=== PATIENT | male | born 1935 | race Caucasian/White ===

== ENCOUNTER 2018-02-21 08:30 | Inpatient (IN) ==
[2018-02-15 12:39] LABS: Appearance,Urine CLEAR; Bacteria,Urine 0 /hpf (0); Bilirubin,Urine NEG (NEG); Color,Urine YELLOW; Glucose,Urine (UA) NEGATIVE (NEG); Leukocyte Esterase,Urine 25 /uL (NEG); Mucus,Urine FEW /hpf (0); Protein,Urine NEG (NEG); Specific Gravity,Urine 1.016 (1.000-1.035); Urine Amorphous Crystals FEW /hpf (0); Urine Blood NEG mg/dL (<0.03); Urine Hyaline Cast 3 /lpf (0-2); Urine RBC < 1 /hpf (0-1); Urine Squamous Epithelial Cell 1 /hpf (0-4); Urine WBC < 1 /hpf (0-4); Urobilinogen,Urine NEG (NEG)
[2018-02-15 13:01] LABS: Blood Urea Nitrogen 13 mg/dl (8-23)
[2018-02-15 13:13] LABS: Basophils # (Auto) 0 K/mcL (0.0-0.3); Basophils % (Auto) 0.5 % (0.0-2.0); Eosinophils # (Auto) 0.2 K/mcL (0.0-0.7); Eosinophils % (Auto) 3.7 % (0.0-7.0); Lymphocytes # (Auto) 1.5 K/mcL (1.5-4.8); Lymphocytes % (Auto) 23.2 % (15.5-49.0); Mean Cell Volume 92.7 fL (80.0-100.0); Mean Corpuscular HGB Conc 33.2 g/dL (31.0-36.0); Mean Corpuscular Hemoglobin 30.8 pg (26.0-34.0); Monocytes # (Auto) 0.5 K/mcL (0.1-0.9); Monocytes % (Auto) 7.6 % (1.0-12.0); Platelet Count 176 K/mcL (140-440); RBC 4.78 M/mcL (4.50-5.90); Red Cell Distribution Width 14.2 % (11.5-14.5)
[~2018-02-21 08:30] MED LIST: 0.9 % SODIUM CHLORIDE 9 ML, KETOROLAC 30 MG, ROPIVACAINE HCL/PF 49.5 ML, EPINEPHrine 0.... IJ SCH; ACETAMINOPHEN 500 MG TABLET PO SCH; CELECOXIB 200 MG CAPSULE PO SCH; PREGABALIN 75 MG CAPSULE PO SCH; ceFAZolin 1 GM VIAL IV SCH; oxyCODONE 10 MG TAB.ER.12H PO SCH
[2018-02-21] MEDS ORDERED: PHENYLEPHRINE 10 MG/ML VIAL IV ONE (11:15)
[2018-02-21] MEDS ORDERED: KETAMINE 100 MG/ML ML IV ONE (11:15)
[2018-02-21] MEDS ORDERED: ONDANSETRON 4 MG/2 ML VIAL IV ONE (11:15)
[2018-02-21] MEDS ORDERED: ROPIVACAINE HCL/PF 30 ML VIAL IJ ONE (11:15)
[2018-02-21] MEDS ORDERED: GLYCOPYRROLATE 0.2 MG/ML VIAL IV ONE (11:15)
[2018-02-21] MEDS ORDERED: LIDOCAINE HCL/PF 100 MG/5 ML SYRINGE IV ONE (11:15)
[2018-02-21] MEDS ORDERED: TRANEXAMIC ACID 1,000 MG/10 ML VIAL IV ONE ×2 (11:15→13:02)
[2018-02-21] MEDS ORDERED: MIDAZOLAM 2 MG/2 ML VIAL IV ONE (11:15)
[2018-02-21] MEDS ORDERED: PROPOFOL 200 MG/20 ML VIAL IV ONE (11:15)
[2018-02-21] MEDS ORDERED: GENTAMICIN SULFATE 800 MG/20 ML VIAL IR ONE (11:35)
[2018-02-21] MEDS ORDERED: TEMAZEPAM 15 MG CAPSULE PO PRN (13:02)
[2018-02-21] MEDS ORDERED: MAGNESIUM HYDROXIDE 30 ML ORAL.SUSP PO PRN (13:02)
[2018-02-21] MEDS ORDERED: BISACODYL 10 MG SUPP.RECT PR PRN (13:02)
[2018-02-21] MEDS ORDERED: FLEETS ADULT ENEMA PR PRN (13:02)
[2018-02-21] MEDS ORDERED: ONDANSETRON 4 MG/2 ML VIAL IV PRN ×2 (13:02→13:04)
[2018-02-21] MEDS ORDERED: ACETAMINOPHEN 325 MG TABLET PO PRN (13:02)
[2018-02-21] MEDS ORDERED: POLYETHYLENE GLYCOL 3350 17 GM PACKET PO PRN (13:02)
[2018-02-21] MEDS ORDERED: BENZOCAINE/MENTHOL 1 LOZENGE PO PRN (13:02)
--- NOTE | 2018-02-21 13:02 | Brief Operative Note ---
Date of procedure: 02/21/18 Pre-op diagnosis: left total loose and infected Post-op diagnosis: same Procedure: left tka revision first stage Grafts/Implants: Yes Anesthesia: PARKERA Surgeon: Tc Espinoza Radiologist Chief Of Breast Imaging: Kyree Ortiz Estimated blood loss (cc): 20 Tourniquet Time (Minutes): 55 Specimens Removed/Pathology: none sent Condition: stable Disposition: PACU
[2018-02-21] MEDS ORDERED: METHOCARBAMOL 1,000 MG/10 ML VIAL IV PRN (13:04)
[2018-02-21] MEDS ORDERED: MEPERIDINE 25 MG/ML SYRINGE IV PRN (13:04)
[2018-02-21] MEDS ORDERED: PROMETHAZINE 25 MG/ML VIAL IV PRN (13:04)
[2018-02-21] MEDS ORDERED: fentaNYL 100 MCG/2 ML VIAL IV PRN (13:04)
[2018-02-21] MEDS ORDERED: ePHEDrine 50 MG/ML AMPUL IV PRN (13:04)
[2018-02-21] MEDS ORDERED: IPRATROPIUM/ALBUTEROL 3 ML AMPUL.NEB NEB PRN (13:04)
[2018-02-21] MEDS ORDERED: POTASSIUM CHLORIDE 20 MEQ TABLET PO PRN (13:06)
[2018-02-21] MEDS ORDERED: OMEPRAZOLE 20 MG CAPSULE PO PRN (13:06)
[2018-02-21] MEDS ORDERED: METHOCARBAMOL 750 MG TABLET PO PRN (13:06)
[2018-02-21] MEDS ORDERED: LACTATED RINGERS 1,000 ML IV SCH (13:15)
--- NOTE | 2018-02-21 13:56 | XRay Report ---
HISTORY: Postop left knee arthroplasty FINDINGS: There is a well positioned total knee prosthesis. No fractures present. A joint spurs present along the top of the patella. In the region of the suprapatellar bursa and behind the giant spur there is a cluster of three calcifications with sclerotic borders. The largest measures 5 x 10 mm. These are more likely extracapsular rather than within the suprapatellar bursa. IMPRESSION: Well-positioned knee prosthesis Interpreted and Authenticated by: Zan Sykes 02/21/18
[2018-02-21] MEDS: 0.9 % SODIUM CHLORIDE 10 ML SYRINGE IV SCH ×2 (14:41→21:00)
--- NOTE | 2018-02-21 14:48 | Operative Note ---
DATE OF OPERATION: 02/21/2018 PREOPERATIVE DIAGNOSIS: Left failed total knee. 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 Cultures were sent. PROCEDURE: Left first-stage revision of a total knee arthroplasty. SURGEON: Tc Espinoza M.D. UNHAIRING INSPECTOR: Kyree Ortiz PA-C. ANESTHESIA: General LMA anesthesia by Dr. Linares. COMPLICATIONS: None. TOTAL TOURNIQUET TIME: 55 minutes. BLOOD LOSS: 20 mL. DESCRIPTION OF PROCEDURE: The patient was brought to the operating room and put to sleep with general LMA anesthesia. Once asleep, the patient had the left leg sterilely prepped and draped in the usual sterile fashion. Once we had done this and we confirmed the operative site, we then made a midline medial incision, midvastus approach performed through his prior scar. __ of the patella which was very large and bone had formed around the superior portion of the patella and laterally. The patient also had severe synovitis throughout the knee and some purulent fluid. At this point, we sent three samples to the pathologist with readings of the medial compartment synovitis of 12, posterior lateral was 7, and anterior was 10 white blood cells per high-powered field. With these findings, we chose to proceed with a first-stage revision. We removed the femoral component and the tibial component and poly. I removed the lateral facet of the patella. Once these components were removed using flexible osteotomes, we thoroughly irrigated and performed a complete synovectomy. Chlorhexidine was used as a wash for the knee and then copious amounts of pulse lavage. We then trialed the size 6 tibial baseplate, size 6 femur with a medial wedge of 10 mm. Once this was done, we then cemented into place a size 6 tibial base plate, 6 femur with an 11 mm poly. This seemed to fit very nicely. The patient tolerated this well without complication. When the cement was dry, we took the knee to 45 degrees, closed the midvastus approach with #1 Stratafix x2 stitches. We performed a lateral release of the facet or bony material in the lateral portion of the patella. We also improved the rotation of the tibial baseplate and some cysts in the bone were noted. These were curetted and filled with antibiotic-impregnated cement. Once this was done, we then closed the capsule and closed the skin with Stratafix and then adhesive closure. The patient tolerated this well. There was no complication. RBCata:khalif Job ID: [id number] Doc ID: [id number] Tc Espinoza MD
[2018-02-21] MEDS: 0.45 % SODIUM CHLORIDE 1,000 ML IV SCH ×2 (15:08→23:22)
[2018-02-21] MEDS: WARFARIN 5 MG TABLET PO SCH (15:08)
[2018-02-21] MEDS: ceFAZolin 1 GM VIAL IV SCH (17:46)
[2018-02-21] MEDS: KETOROLAC 15 MG/ML VIAL IV SCH ×2 (17:53→23:15)
[2018-02-21] MEDS: metFORMIN 500 MG TABLET PO SCH (17:53)
[2018-02-21] MEDS: GLIMEPIRIDE 2 MG TABLET PO SCH (18:09)
[2018-02-21] MEDS ORDERED: DEXTROSE 31 GM ORAL.SUSP PO PRN (18:43)
[2018-02-21] MEDS ORDERED: DEXTROSE 50% 50 ML VIAL IV PRN (18:43)
[2018-02-21] MEDS: HYDROcodone/APAP 10/325MG TABLET PO PRN (19:40)
[2018-02-21] MEDS: DOCUSATE SODIUM 100 MG CAPSULE PO SCH (20:55)
[2018-02-21] MEDS: DIAZEPAM 5 MG TABLET PO SCH (20:55)
[2018-02-21] MEDS: AMITRIPTYLINE 10 MG TABLET PO SCH (20:55)
[2018-02-21] MEDS: SENNOSIDES 1 TABLET PO SCH (20:55)
[2018-02-21] MEDS ORDERED: ASPIRIN 325 MG ENTERIC COATED TABLET PO SCH (21:00)
[2018-02-21] MEDS: INSULIN LISPRO 1 UNIT/0.01 ML UNIT SQ SCH (21:00)
[2018-02-22] MEDS: ceFAZolin 1 GM VIAL IV SCH (01:15)
[2018-02-22] MEDS: HYDROcodone/APAP 10/325MG TABLET PO PRN ×2 (02:17→08:36)
[2018-02-22] MEDS: 0.45 % SODIUM CHLORIDE 1,000 ML IV SCH ×3 (03:07→18:37)
[2018-02-22] MEDS: KETOROLAC 15 MG/ML VIAL IV SCH ×4 (05:31→23:44)
[2018-02-22] MEDS: 0.9 % SODIUM CHLORIDE 10 ML SYRINGE IV SCH ×3 (05:31→20:52)
--- NOTE | 2018-02-22 07:28 | Orthopedic Progress Note ---
Subjective Patient information: Note initiated : 02/22/18 at 7:27 am Service Date, if different from initiated Date: [] Patient: Huey Boland 82 y/o M admitted on 02/21/18 for Revision Total Knee - Left. Chief Complaint: [Pt is stable this morning on post operative day 2 without any significant concerns or complaints. Patients vital signs have remained stable. Patients dressing is dry and is grossly instact from a neurovascular and motor standpoint. Patients 10 point ROS is otherwise negative. ] Objective Vital signs: Vital Signs Temp Pulse Resp BP Pulse Ox 02/22/18 04:35 96 02/22/18 04:00 98.3 F 67 16 112/67 96 02/21/18 23:56 97.4 F 64 16 103/64 93 02/21/18 20:00 96.6 F L 91 H 18 105/73 93 02/21/18 17:01 114/68 100 02/21/18 16:02 111/69 98 02/21/18 15:32 112/71 93 02/21/18 15:01 115/74 98 02/21/18 14:46 115/74 95 02/21/18 14:30 109/65 97 02/21/18 14:16 96.4 F L 109/70 97 02/21/18 14:01 96.9 F L 78 14 111/79 97 02/21/18 13:46 97.0 F 88 16 103/71 94 02/21/18 13:31 97.0 F 90 17 93/68 97 02/21/18 13:26 66 16 94/57 97 02/21/18 13:21 57 L 13 94/59 96 02/21/18 13:16 97.1 F 51 L 14 99/59 94 02/21/18 10:17 97.6 F 18 133/89 95 Intake and Output 02/21/18 02/22/18 02/22/18 21:59 05:59 13:59 Intake Total 480 / 480 2000 / 2000 Output Total 150 / 150 400 / 400 Balance 330 / 330 1600 / 1600 Intake: IV 1000 / 1000 Sodium Chloride 0.45% 1,000 ml 1000 / 1000 @ 100 mls/hr IV .Q10H [facility] Rx#: [id number] Oral 480 / 480 1000 / 1000 Output: Urine Catheter Amount 400 / 400 Estimated Blood Loss 150 / 150 Other: Meal Dinner Percent of Meal Consumed 75% Urine Appearance Clear Straight Clear Urine Color Dark Yellow Straight Bright Yellow Urine Odor Normal Weight 290 lb 8 oz Intake & Output: Intake & Output 02/21/18 02/22/18 02/22/18 21:59 05:59 13:59 Intake Total 480 / 480 1999 / 1999 Output Total 150 / 150 400 / 400 Balance 330 / 330 1600 / 1600 Weight 290 lb 8 oz Intake: IV 1000 / 1000 Sodium Chloride 0.45% 1,000 ml 1000 / 1000 @ 100 mls/hr IV .Q10H [facility] Rx#: [id number] Oral 480 / 480 1000 / 1000 Output: Urine Catheter Amount 400 / 400 Estimated Blood Loss 150 / 150 Other: Meal Dinner Percent of Meal Consumed 75% Urine Appearance Clear Straight Clear Urine Color Dark Yellow Straight Bright Yellow Urine Odor Normal Incision: Yes healing Incision clean and dry: Yes Dressing: Yes clean Weight bearing status: full Neurological exam IM: Yes motor sensory intact, Yes neurovascular intact Extremities exam IM: Yes Foot pink and warm, Yes neurovascular intact - Labs CBC & BMP: 02/22/18 04:28 02/15/18 10:53 Labs: Orthopedic Labs 02/15/18 10:52 PT 16.9 H INR 1.4 H APTT 37 02/22/18 02/15/18 04:28 10:52 Hgb 14.7 Hct 34.9 L 44.3 Assessment and Plan (1) 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 The patient has had all necessary DME prescribed. The patient has remained relatively stable during their hospital course. 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
[2018-02-22] MEDS: INSULIN LISPRO 1 UNIT/0.01 ML UNIT SQ SCH ×4 (07:29→20:51)
--- NOTE | 2018-02-22 07:31 | Discharge Summary ---
Ortho Discharge - TKA - Patient Instructions Diet: Regular Diet Activity: activity as tolerated, weight bearing as tolerated Total Knee Protocol: For Total Knee: Start ROM [place] with stationary bike or rocking chair. Work on gaining full extension of knee. Posterior dislocation precautions provided. Hip abductor strengthening and gait training instructions provided. Apply Cryocuff as instructed. 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
[2018-02-22] MEDS: LISINOPRIL 10 MG TABLET PO SCH (08:36)
[2018-02-22] MEDS: GLIMEPIRIDE 2 MG TABLET PO SCH ×2 (08:36→17:21)
[2018-02-22] MEDS: metFORMIN 500 MG TABLET PO SCH ×2 (08:36→17:21)
[2018-02-22] MEDS: DOCUSATE SODIUM 100 MG CAPSULE PO SCH ×2 (08:36→20:51)
[2018-02-22] MEDS: HYDROmorphone 2 MG/ML VIAL IV PRN ×2 (08:49→10:40)
[2018-02-22] MEDS: oxyCODONE/APAP 5/325MG TABLET PO PRN ×2 (12:32→19:32)
[2018-02-22] MEDS: CEPHALEXIN 250 MG CAPSULE PO SCH ×3 (12:33→20:52)
[2018-02-22] MEDS ORDERED: WARFARIN 5 MG TABLET PO ONE ×2 (15:00)
[2018-02-22] MEDS: WARFARIN 5 MG TABLET PO SCH (15:58)
[2018-02-22] MEDS: AMITRIPTYLINE 10 MG TABLET PO SCH (20:51)
[2018-02-22] MEDS: DIAZEPAM 5 MG TABLET PO SCH (20:52)
[2018-02-22] MEDS: FUROSEMIDE 20 MG TABLET PO PRN (20:52)
[2018-02-22] MEDS: SENNOSIDES 1 TABLET PO SCH (20:52)
[2018-02-23] MEDS: oxyCODONE/APAP 5/325MG TABLET PO PRN ×5 (02:34→20:54)
[2018-02-23] MEDS: 0.45 % SODIUM CHLORIDE 1,000 ML IV SCH ×2 (04:37→15:34)
[2018-02-23] MEDS: 0.9 % SODIUM CHLORIDE 10 ML SYRINGE IV SCH ×3 (06:01→20:41)
[2018-02-23] MEDS: KETOROLAC 15 MG/ML VIAL IV SCH ×2 (06:01→11:39)
[2018-02-23] MEDS: INSULIN LISPRO 1 UNIT/0.01 ML UNIT SQ SCH ×4 (06:59→20:41)
[2018-02-23] MEDS: GLIMEPIRIDE 2 MG TABLET PO SCH ×2 (07:07→17:06)
[2018-02-23] MEDS: metFORMIN 500 MG TABLET PO SCH ×2 (07:57→17:06)
[2018-02-23] MEDS: LISINOPRIL 10 MG TABLET PO SCH (07:57)
[2018-02-23] MEDS: DOCUSATE SODIUM 100 MG CAPSULE PO SCH ×2 (07:57→20:52)
[2018-02-23] MEDS: CEPHALEXIN 250 MG CAPSULE PO SCH ×4 (07:57→20:53)
--- NOTE | 2018-02-23 13:49 | Discharge Summary ---
Ortho Discharge - TKA - Patient Instructions Diet: Regular Diet Activity: activity as tolerated, weight bearing as tolerated Total Knee Protocol: For Total Knee: Start ROM [place] with stationary bike or rocking chair. Work on gaining full extension of knee. Posterior dislocation precautions provided. Hip abductor strengthening and gait training instructions provided. Apply Cryocuff as instructed. Dressing Care: Aquacel Ag - leave on for 5 days - Follow Up Plan Follow Up Appointments: Kyree Ortiz PA-C [Physician Document Processor] - 03/08/18 2:20 pm Disposition: [facility] Bed Prognosis: Good Rehab Potential: Good I certify that the patient requires SNF services: Yes Overall status at discharge: patient is progressing back to baseline - Orders For Discharge Prescriptions: Docusate Sodium [Colace] 100 mg PO BID #60 cap HYDROcodone/APAP 10/325MG [[place] 10-325Mg] 1 - 2 tab PO Q4HP PRN #75 tab PRN Reason: Pain Additional Discharge Orders: Physical Therapy at Discharge - TKA Location: None Selected CPM Discharge Order Location: None Selected Toilet Riser Discharge Order Location: None Selected Walker Location: None Selected
--- NOTE | 2018-02-23 13:53 | Orthopedic Progress Note ---
Subjective Patient information: Note initiated : 02/23/18 at 1:49 pm Service Date, if different from initiated Date: [] Patient: Huey Boland 82 y/o M admitted on 02/21/18 for Revision Total Knee - Left. Chief Complaint: [] Principal diagnosis: fell yesterday with no pain today, no cp no sob, pain is 3 out of 10 and ea Objective Vital signs: Vital Signs Temp Pulse Resp BP Pulse Ox 02/23/18 11:00 97.5 F 86 16 111/70 92 02/23/18 07:00 98.5 F 86 16 101/62 95 02/23/18 05:00 97 02/23/18 03:00 98.0 F 87 16 105/71 97 02/23/18 01:16 98 02/22/18 23:55 98.2 F 87 16 101/67 98 02/22/18 20:29 95 02/22/18 19:50 97.8 F 84 16 104/67 95 02/22/18 19:37 95 02/22/18 17:42 95 02/22/18 15:32 98.4 F 102 H 16 95/58 92 02/22/18 13:52 98.6 F 94 H 16 102/63 93 Intake and Output 02/22/18 02/23/18 02/23/18 21:59 05:59 13:59 Intake Total 1640 / 1640 960 / 960 Output Total 75 / 75 226 / 226 200 / 200 Balance 1565 / 1565 734 / 734 -200 / -200 Intake: IV 900 / 900 Sodium Chloride 0.45% 1,000 ml 900 / 900 @ 100 mls/hr IV .Q10H [facility] Rx#: [id number] Oral 740 / 740 960 / 960 Output: Void Amount 75 / 75 225 / 225 200 / 200 # of times incontinent of urine Other: Meal Dinner Percent of Meal Consumed 75% Urine Appearance Clear Clear Urine Color Light Amy Dark Amy Urine Odor Normal Normal Weight 292 lb Intake & Output: Intake & Output 02/22/18 02/23/18 02/23/18 21:59 05:59 13:59 Intake Total 1640 / 1640 960 / 960 Output Total 75 / 75 226 / 226 200 / 200 Balance 1565 / 1565 734 / 734 -200 / -200 Weight 292 lb Intake: IV 900 / 900 Sodium Chloride 0.45% 1,000 ml 900 / 900 @ 100 mls/hr IV .Q10H [facility] Rx#: [id number] Oral 740 / 740 960 / 960 Output: Void Amount 75 / 75 225 / 225 200 / 200 # of times incontinent of urine Other: Meal Dinner Percent of Meal Consumed 75% Urine Appearance Clear Clear Urine Color Light Amy Dark Amy Urine Odor Normal Normal Incision: Yes healing Incision clean and dry: Yes Dressing: Yes clean Weight bearing status: full Neurological exam IM: Yes oriented X3 Extremities exam IM: Yes joint swelling (Discharge tomorrow to [facility] doing well), Yes Foot pink and warm, Yes neurovascular intact - Labs CBC & BMP: 02/22/18 04:28 02/15/18 10:53 Labs: Orthopedic Labs 02/23/18 02/22/18 02/15/18 04:50 14:07 10:52 PT 15.9 H 15.3 H 16.9 H INR 1.3 H 1.2 H 1.4 H APTT 37 02/22/18 02/15/18 04:28 10:52 Hgb 14.7 Hct 34.9 L 44.3
[2018-02-23] MEDS ORDERED: WARFARIN 5 MG TABLET PO ONE (14:00)
[2018-02-23] MEDS: AMITRIPTYLINE 10 MG TABLET PO SCH (20:52)
[2018-02-23] MEDS: SENNOSIDES 1 TABLET PO SCH (20:53)
[2018-02-23] MEDS: DIAZEPAM 5 MG TABLET PO SCH (20:53)
[2018-02-23] MEDS: FUROSEMIDE 20 MG TABLET PO PRN (20:54)
[2018-02-24] MEDS: 0.45 % SODIUM CHLORIDE 1,000 ML IV SCH (01:00)
[2018-02-24] MEDS: oxyCODONE/APAP 5/325MG TABLET PO PRN (02:02)
[2018-02-24] MEDS: 0.9 % SODIUM CHLORIDE 10 ML SYRINGE IV SCH (05:29)
[2018-02-24] MEDS: GLIMEPIRIDE 2 MG TABLET PO SCH (07:46)
[2018-02-24] MEDS: metFORMIN 500 MG TABLET PO SCH (07:46)
[2018-02-24] MEDS: INSULIN LISPRO 1 UNIT/0.01 ML UNIT SQ SCH (07:47)
[2018-02-24] MEDS: LISINOPRIL 10 MG TABLET PO SCH (07:47)
[2018-02-24] MEDS: CEPHALEXIN 250 MG CAPSULE PO SCH (07:47)
[2018-02-24] MEDS: DOCUSATE SODIUM 100 MG CAPSULE PO SCH (07:47)
== END 2018-02-24 11:55 | disposition other institution (70) | DRG 467 ==
LOC: MEDSUR 09:40
PROVIDERS: ADMIT Orthopaedic Surgery; ATTEND Orthopaedic Surgery

== ENCOUNTER 2018-04-18 08:30 | Inpatient (IN) ==
[2018-04-08 15:44] LABS: Basophils # (Auto) 0 K/mcL (0.0-0.3); Basophils % (Auto) 0.3 % (0.0-2.0); Eosinophils # (Auto) 0.2 K/mcL (0.0-0.7); Eosinophils % (Auto) 4.1 % (0.0-7.0); Granulocytes % (Auto) 65.6 % (38.0-78.0); Lymphocytes # (Auto) 1.3 K/mcL (1.5-4.8); Mean Cell Volume 94.7 fL (80.0-100.0); Mean Corpuscular HGB Conc 33.6 g/dL (31.0-36.0); Mean Corpuscular Hemoglobin 31.8 pg (26.0-34.0); Monocytes # (Auto) 0.4 K/mcL (0.1-0.9); Platelet Count 186 K/mcL (140-440); RBC 4.36 M/mcL (4.50-5.90); Red Cell Distribution Width 13.9 % (11.5-14.5)
[2018-04-08 15:53] LABS: Blood Urea Nitrogen 11 mg/dl (8-23)
[2018-04-08 16:20] LABS: Estimated Average Glucose(eAG) 146 mg/dL; Hemoglobin A1C 6.7 % HGB (4.0-6.0)
[2018-04-08 16:32] LABS: Appearance,Urine CLEAR; Bilirubin,Urine NEG (NEG); Color,Urine YELLOW; Glucose,Urine (UA) NEGATIVE (NEG); Leukocyte Esterase,Urine NEG /uL (NEG); Protein,Urine NEG (NEG); Specific Gravity,Urine 1.015 (1.000-1.035); Urine Blood NEG mg/dL (<0.03); Urobilinogen,Urine NEG (NEG)
[2018-04-15] MEDS: 0.9 % SODIUM CHLORIDE 10 ML SYRINGE IV SCH (12:35)
[~2018-04-18 08:30] MED LIST changes: +GABAPENTIN 100 MG CAPSULE PO SCH; -PREGABALIN 75 MG CAPSULE PO SCH
[2018-04-18] MEDS ORDERED: VASOPRESSIN 20 UNIT/ML VIAL IV ONE (12:50)
[2018-04-18] MEDS ORDERED: PROPOFOL 200 MG/20 ML VIAL IV ONE (12:50)
[2018-04-18] MEDS ORDERED: ONDANSETRON 4 MG/2 ML VIAL IV ONE (12:50)
[2018-04-18] MEDS ORDERED: TRANEXAMIC ACID 1,000 MG/10 ML VIAL IV ONE ×2 (12:50→15:16)
[2018-04-18] MEDS ORDERED: HETASTARCH 6% 500 ML BAG IV ONE (12:50)
[2018-04-18] MEDS ORDERED: DEXAMETHASONE 10 MG/ML VIAL IV ONE (12:50)
[2018-04-18] MEDS ORDERED: LIDOCAINE HCL/PF 100 MG/5 ML SYRINGE IV ONE (12:50)
[2018-04-18] MEDS ORDERED: ROPIVACAINE HCL/PF 20 ML VIAL IJ ONE (12:50)
[2018-04-18] MEDS ORDERED: MIDAZOLAM 5 MG/5 ML VIAL IV ONE (12:50)
[2018-04-18] MEDS ORDERED: PHENYLEPHRINE 10 MG/ML VIAL IV ONE (12:50)
[2018-04-18] MEDS ORDERED: GLYCOPYRROLATE 0.2 MG/ML VIAL IV ONE (12:50)
[2018-04-18] MEDS ORDERED: ePHEDrine 50 MG/ML AMPUL IV ONE (12:50)
[2018-04-18] MEDS ORDERED: GENTAMICIN SULFATE 800 MG/20 ML VIAL IR ONE (13:14)
[2018-04-18] MEDS ORDERED: FLUMAZENIL 0.1 MG/ML ML IV PRN (14:13)
[2018-04-18] MEDS ORDERED: NALOXONE HCL 0.4 MG/ML VIAL IV PRN (14:13)
[2018-04-18] MEDS ORDERED: BENZOCAINE/MENTHOL 1 LOZENGE PO PRN ×2 (14:13→15:16)
[2018-04-18] MEDS ORDERED: fentaNYL 100 MCG/2 ML VIAL IV PRN (14:13)
[2018-04-18] MEDS ORDERED: ACETAMINOPHEN 1,000 MG/100 ML BOTTLE IV ONE (14:13)
[2018-04-18] MEDS ORDERED: LACTATED RINGERS 250 ML IV PRN (14:13)
[2018-04-18] MEDS ORDERED: METHOCARBAMOL 1,000 MG/10 ML VIAL IV PRN (14:13)
[2018-04-18] MEDS ORDERED: IPRATROPIUM/ALBUTEROL 3 ML AMPUL.NEB NEB PRN (14:13)
[2018-04-18] MEDS ORDERED: LACTATED RINGERS 1,000 ML IV SCH (14:15)
--- NOTE | 2018-04-18 15:15 | Brief Operative Note ---
Date of procedure: 04/18/18 Pre-op diagnosis: left knee infection end firs stage Post-op diagnosis: same Procedure: Left knee tka revision 2nd stage all components Grafts/Implants: Yes Anesthesia: GETA Complications: none Surgeon: Tc Espinoza Museum Librarian: Rose Marie Queen Estimated blood loss (cc): 140 Tourniquet Time (Minutes): 84 Specimens Removed/Pathology: none sent Condition: stable Disposition: PACU
[2018-04-18] MEDS ORDERED: BISACODYL 10 MG SUPP.RECT PR PRN (15:16)
[2018-04-18] MEDS ORDERED: ACETAMINOPHEN 325 MG TABLET PO PRN (15:16)
[2018-04-18] MEDS ORDERED: POLYETHYLENE GLYCOL 3350 17 GM PACKET PO PRN (15:16)
[2018-04-18] MEDS ORDERED: FLEETS ADULT ENEMA PR PRN (15:16)
[2018-04-18] MEDS ORDERED: TEMAZEPAM 15 MG CAPSULE PO PRN (15:16)
[2018-04-18] MEDS ORDERED: ONDANSETRON ODT 4 MG TABLET SL PRN (15:16)
[2018-04-18] MEDS ORDERED: OMEPRAZOLE 20 MG CAPSULE PO PRN (15:20)
[2018-04-18] MEDS ORDERED: OXYBUTYNIN CHLORIDE 5 MG TAB.XL.24H PO PRN (15:20)
[2018-04-18] MEDS ORDERED: HYDROcodone/APAP 10/325MG TABLET PO PRN (15:20)
--- NOTE | 2018-04-18 16:37 | XRay Report ---
HISTORY: Revised knee prosthesis FINDINGS: Patient has a total knee prosthesis which has been revised since 02/21/18. There are long rods extending into the shaft of the femur and shaft of the tibia. The prosthesis is well-positioned. There is no fracture. There is a large dystrophic calcification in the quadriceps tendon where it inserts into the patella. Small periarticular soft tissue calcifications are seen along both medial and lateral sides of the femoral tibial joint spaces. IMPRESSION: Well-positioned left knee prosthesis Interpreted and Authenticated by: Zan Sykes 04/18/18
--- NOTE | 2018-04-18 16:52 | Operative Note ---
DATE OF OPERATION: 04/18/2018 PREOPERATIVE DIAGNOSIS: Left septic knee, status post first stage revision. POSTOPERATIVE DIAGNOSIS: Left septic knee, status post first stage revision. PROCEDURE: Left knee final stage revision, second stage. SURGEON: Tc Espinoza M.D. ASSOCIATE MANAGER AFFILIATE MARKETING: Rose Marie Queen PA-C. COMPLICATIONS: None. SPECIMENS: Specimens were sent with two soft tissue specimens which came back with 1 or less white blood cells per high powered field on both samples. IMPLANTS PLACED: A long-stemmed Reina total knee arthroplasty with a 13 mm poly and a 38 patella oval. The procedure is a complete revision of all components of the total knee arthroplasty, second stage, from infection. TOURNIQUET TIME: 84 minutes. ESTIMATED BLOOD LOSS: 140 mL. DESCRIPTION OF PROCEDURE: The patient was brought to the operating room and put to sleep with general LMA anesthesia. Once asleep, the patient had the left leg sterilely prepped and draped in the usual sterile fashion. Timeout was performed, and we confirmed the operative site by initials, consent form and x-rays. Once done, we then exsanguinated the leg, inflated the tourniquet to 250 pounds of pressure. A midline incision was made through the prior scar, encountering significant scar tissue with the skin and the capsule fairly scarred in. We then elevated the plane [id number] and exposed the prior wound that had healed very nicely. We then made an incision. There was very clear fluid that came out of the knee. After developing the plane and working to get the patella subluxed laterally, we then removed the components. The femur and the tibia were removed. The poly liner was first removed and then we removed the femoral component. Using an osteotome and punch, this was removed losing no significant amount of bone. The cement stayed attached to the implant without difficulty. We then also used an osteotome to separate the tibial component from its cemented base. We did this and then using a punch we were able to punch this proximally. No significant bone loss here either. There was a little bit of fluid underneath the baseplate that was thoroughly irrigated and some cement that had ended up down the canal which we removed with a grasper. Thorough irrigation was done. We then freshened the cut to make it perfectly flush on the tibia using a 17 mm reamer and then a guide was cut at neutral. Once cut, we then punched into place the new baseplate. Once done, we irrigated thoroughly and then trialed the component with a 16 mm, 150 mm stem. This was set at 4 mm of offset and at the 10 o'clock position. Once done, we then tapped this into place and prepared the femur. The femur had a freshening cut medially requiring 15 mm from the medial epicondyle and 5 mm from the lateral articular surface. Once done, we irrigated and placed the wedges on the femoral component, and this was tapped into place. A long stem was reamed. This was up to a 17 mm stem, 175 mm long. We irrigated thoroughly and then trialed this. This seemed to work very well, though the 11 was a little loose in flexion and extension, fairly symmetric alignment. We then trialed the size 13 poly. This was the most appropriate and seemed to be very stable. We irrigated thoroughly and then prepared the patella. The patella that had originally been placed was removed using a reciprocating saw. We freshened the cut down to approximately 17 mm and then resurfaced the patella with a lateral facet cut to release some of the bony augmentation. We irrigated thoroughly. We then cemented into place the above-mentioned sizes after we confirmed the alignment and the position and sizes. We freshened the bone using CarboJet and pulse lavage. Once the components had been put into place, we then inserted them with antibiotic-impregnated cement. Excess cement was removed. A 13 poly was placed. A 38 mm oval patella was then positioned and placed, and it tracked perfectly. We irrigated thoroughly and closed the midvastus approach after deflating the tourniquet at 84 minutes with a #1 Stratafix suture x3, and then a fourth Stratafix suture was placed in the deeper layer, and then 2-0 Vicryl superficially with ambrose. The patient tolerated this well. Sterile bandage was applied. CURTIS:khalif Job ID: [id number] Doc ID: [id number] Tc Espinoza MD
[2018-04-18] MEDS: 0.45 % SODIUM CHLORIDE 1,000 ML IV SCH (17:31)
[2018-04-18] MEDS: WARFARIN 5 MG TABLET PO SCH (17:32)
[2018-04-18] MEDS: metFORMIN 500 MG TABLET PO SCH (17:32)
[2018-04-18] MEDS: GLIMEPIRIDE 2 MG TABLET PO SCH (17:33)
[2018-04-18] MEDS: KETOROLAC 15 MG/ML VIAL IV SCH ×2 (17:33→23:39)
[2018-04-18] MEDS: HYDROmorphone 2 MG/ML VIAL IV PRN ×2 (18:07→19:57)
[2018-04-18] MEDS: oxyCODONE/APAP 5/325MG TABLET PO PRN (19:13)
[2018-04-18] MEDS: ceFAZolin 1 GM VIAL IV SCH (19:44)
[2018-04-18] MEDS: METHOCARBAMOL 750 MG TABLET PO PRN (19:44)
[2018-04-18] MEDS: 0.9 % SODIUM CHLORIDE 10 ML SYRINGE IV SCH (20:33)
[2018-04-18] MEDS: DOCUSATE SODIUM 100 MG CAPSULE PO SCH (20:37)
[2018-04-18] MEDS: AMITRIPTYLINE 25 MG TABLET PO SCH (20:37)
[2018-04-18] MEDS: SENNOSIDES 1 TABLET PO SCH (20:37)
[2018-04-18] MEDS: GABAPENTIN 100 MG CAPSULE PO SCH (20:37)
[2018-04-18] MEDS ORDERED: ASPIRIN 325 MG ENTERIC COATED TABLET PO SCH (21:00)
[2018-04-19] MEDS: 0.45 % SODIUM CHLORIDE 1,000 ML IV SCH (01:45)
[2018-04-19] MEDS: KETOROLAC 15 MG/ML VIAL IV SCH ×4 (05:01→23:37)
[2018-04-19] MEDS: ceFAZolin 1 GM VIAL IV SCH (05:01)
[2018-04-19] MEDS: 0.9 % SODIUM CHLORIDE 10 ML SYRINGE IV SCH ×2 (05:15→20:58)
--- NOTE | 2018-04-19 07:25 | Orthopedic Progress Note ---
Subjective Patient information: Note initiated : 04/19/18 at 7:24 am Service Date, if different from initiated Date: [] Patient: Huey Boland 82 y/o M admitted on 04/18/18 for Revision Total Knee - Left Final Stage. Chief Complaint: [Pt is stable this morning on post operative day 1 without any significant concerns or complaints. Patients vital signs have remained stable. Patients dressing is dry and is grossly intact from a neurovascular and motor standpoint. Patients 10 point ROS is otherwise negative. ] Objective Vital signs: Vital Signs Temp Pulse Resp BP BP Pulse Ox 04/19/18 03:43 97.8 F 98 H 16 109/70 94 04/19/18 03:00 94 04/18/18 23:42 97.5 F 69 12 126/75 91 04/18/18 23:00 91 04/18/18 19:32 96.1 F L 63 12 170/87 97 04/18/18 19:16 94 04/18/18 18:32 62 159/80 96 04/18/18 18:09 59 L 12 164/91 97 04/18/18 17:35 96.4 F L 64 132/77 93 04/18/18 17:15 59 L 128/66 94 04/18/18 17:00 64 144/83 93 04/18/18 16:45 55 L 123/63 92 04/18/18 16:30 95.9 F L 62 16 141/53 90 04/18/18 16:19 96.5 F L 63 13 111/57 94 04/18/18 16:04 96.8 F L 83 14 112/50 95 04/18/18 15:49 96.8 F L 81 15 116/58 99 04/18/18 15:44 62 13 118/54 100 04/18/18 15:39 64 17 113/59 100 04/18/18 15:34 96.2 F L 63 18 108/55 96 04/18/18 08:30 97.2 F 99 H 14 143/90 96 Intake and Output 04/18/18 04/19/18 04/19/18 21:59 05:59 13:59 Intake Total 3000 / 3000 1450 / 1450 Output Total 300 / 300 150 / 150 Balance 3000 / 3000 1150 / 1150 -150 / -150 Intake: IV 3000 / 3000 1000 / 1000 Lactated Ringers 1,000 ml @ 20 2900 / 2900 mls/hr IV .Q24H [facility] Rx#: [id number] Oral 450 / 450 Output: Void Amount 300 / 300 150 / 150 Other: Meal Dinner Percent of Meal Consumed 100% Urine Appearance Clear Clear Urine Color Dark Yellow Dark Yellow Weight 289 lb 8 oz Intake & Output: Intake & Output 04/18/18 04/19/18 04/19/18 21:59 05:59 13:59 Intake Total 3000 / 3000 1450 / 1450 Output Total 300 / 300 150 / 150 Balance 3000 / 3000 1150 / 1150 -150 / -150 Weight 289 lb 8 oz Intake: IV 3000 / 3000 1000 / 1000 Lactated Ringers 1,000 ml @ 20 2900 / 2900 mls/hr IV .Q24H [facility] Rx#: [id number] Oral 450 / 450 Output: Void Amount 300 / 300 150 / 150 Other: Meal Dinner Percent of Meal Consumed 100% Urine Appearance Clear Clear Urine Color Dark Yellow Dark Yellow Incision: Yes healing Incision clean and dry: Yes Dressing: Yes clean, Yes dry Weight bearing status: full Neurological exam IM: Yes motor sensory intact, Yes neurovascular intact Extremities exam IM: Yes Foot pink and warm, Yes neurovascular intact - Labs CBC & BMP: 04/19/18 04:00 04/08/18 13:38 Labs: Orthopedic Labs 04/19/18 04/08/18 04:00 13:39 PT 15.3 H 16.1 H INR 1.2 H 1.3 H APTT 33 04/19/18 04/08/18 04:00 13:38 Hgb 13.9 Hct 33.4 L 41.3 Assessment and Plan (1) 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 The patient has had all necessary DME prescribed. The patient has remained relatively stable during their hospital course. Status: Acute
--- NOTE | 2018-04-19 07:28 | Discharge Summary ---
Ortho Discharge - TKA - Patient Instructions Diet: Regular Diet Activity: activity as tolerated, weight bearing as tolerated Total Knee Protocol: For Total Knee: Start ROM [place] with stationary bike or rocking chair. Work on gaining full extension of knee. Posterior dislocation precautions provided. Hip abductor strengthening and gait training instructions provided. Apply Cryocuff as instructed. 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
[2018-04-19] MEDS: oxyCODONE/APAP 5/325MG TABLET PO PRN ×4 (07:54→19:43)
[2018-04-19] MEDS: GLIMEPIRIDE 2 MG TABLET PO SCH ×2 (07:54→19:01)
[2018-04-19] MEDS: metFORMIN 500 MG TABLET PO SCH ×2 (07:54→17:42)
[2018-04-19] MEDS: GABAPENTIN 100 MG CAPSULE PO SCH ×3 (09:04→20:58)
[2018-04-19] MEDS: DOCUSATE SODIUM 100 MG CAPSULE PO SCH ×2 (09:04→20:58)
[2018-04-19] MEDS: LISINOPRIL 10 MG TABLET PO SCH (09:04)
[2018-04-19] MEDS: METHOCARBAMOL 750 MG TABLET PO PRN ×2 (11:04→21:08)
--- NOTE | 2018-04-19 13:00 | Surgical Pathology Report ---
HISTOLOGY SPECIMEN MICROSCOPIC DIAGNOSIS SPECIMEN A - SOFT TISSUE, LEFT KNEE MEDIAL CAPSULE, EXCISION: -- SYNOVIUM WITH CHRONIC INFLAMMATION. -- NO SIGNIFICANT ACUTE INFLAMMATION IDENTIFIED, LESS THAN 1 NEUTROPHIL/HPF. SPECIMEN B - LEFT KNEE, SUPRAPATELLAR POUCH, EXCISION: -- SYNOVIUM WITH CHRONIC INFLAMMATION. -- NO SIGNIFICANT ACUTE INFLAMMATION IDENTIFIED, LESS THAN 1 NEUTROPHIL/HPF. (EBD:djf) INTRAOPERATIVE CONSULTATION FROZEN SECTION DIAGNOSES (Performed at [facility], [place], [place]) SPECIMEN A - LEFT KNEE, MEDIAL CAPSULE, BIOPSY: -- NO SIGNIFICANT ACUTE INFLAMMATION. -- LESS THAN 1 NEUTROPHIL/hpf. SPECIMEN B - LEFT KNEE, SUPRAPATELLAR POUCH, BIOPSY: -- NO SIGNIFICANT ACUTE INFLAMMATION. -- LESS THAN 1 NEUTROPHIL/hpf. (EBD:sln) GROSS DESCRIPTION Received fresh, are two specimens labeled "A" medial capsule left knee and "B" suprapatellar pouch both for frozen section diagnosis: Specimen A: Received is a villegas-pink soft tissue fragment, unoriented and measures 3.7 x 1.1 x 0.6 cm. The specimen is inked black and sectioned. Spooling Supervisor sections submitted for frozen section. Specimen B: Received is a villegas-pink soft tissue fragment, unoriented and measures 3 x 2.2 x 0.6 cm. The specimen is inked black and serially sectioned. Spooling Supervisor sections submitted for frozen section. (EBD:djf) Electronically Signed by: Neisha Sparks M.D.
[2018-04-19] MEDS: WARFARIN 5 MG TABLET PO SCH (14:17)
[2018-04-19] MEDS: SENNOSIDES 1 TABLET PO SCH (20:58)
[2018-04-19] MEDS: AMITRIPTYLINE 25 MG TABLET PO SCH (20:58)
[2018-04-20] MEDS: METHOCARBAMOL 750 MG TABLET PO PRN ×3 (03:13→21:48)
[2018-04-20] MEDS: 0.9 % SODIUM CHLORIDE 10 ML SYRINGE IV SCH ×3 (05:20→21:49)
[2018-04-20] MEDS: KETOROLAC 15 MG/ML VIAL IV SCH ×2 (05:21→11:49)
[2018-04-20] MEDS: GLIMEPIRIDE 2 MG TABLET PO SCH ×2 (06:45→17:32)
[2018-04-20] MEDS: oxyCODONE/APAP 5/325MG TABLET PO PRN ×4 (06:47→19:42)
[2018-04-20] MEDS: LISINOPRIL 10 MG TABLET PO SCH (08:48)
[2018-04-20] MEDS: metFORMIN 500 MG TABLET PO SCH ×2 (08:48→17:32)
[2018-04-20] MEDS: DOCUSATE SODIUM 100 MG CAPSULE PO SCH ×2 (08:48→21:48)
[2018-04-20] MEDS: GABAPENTIN 100 MG CAPSULE PO SCH ×3 (08:48→21:48)
[2018-04-20] MEDS: HYDROmorphone 2 MG/ML VIAL IV PRN (09:08)
--- NOTE | 2018-04-20 13:34 | Orthopedic Progress Note ---
Subjective Patient information: Note initiated : 04/20/18 at 1:32 pm Service Date, if different from initiated Date: [] Patient: Huey Boland 82 y/o M admitted on 04/18/18 for Revision Total Knee - Left Final Stage. Chief Complaint: [pain is now better with no nausea and vomiting. ambulation is good pain is controlled] Objective Vital signs: Vital Signs Temp Pulse Resp BP BP Pulse Ox 04/20/18 11:41 97.6 F 20 113/65 98 04/20/18 11:15 97 04/20/18 08:51 110/58 04/20/18 06:55 96 04/20/18 06:37 98.1 F 16 108/66 97 04/20/18 03:16 97.2 F 62 16 113/69 93 04/20/18 03:00 93 04/19/18 23:45 98.2 F 66 12 130/76 94 04/19/18 19:00 93 04/19/18 16:05 98.6 F 76 16 128/62 Intake and Output 04/19/18 04/20/18 04/20/18 21:59 05:59 13:59 Intake Total 400 / 400 100 / 100 550 / 550 Output Total 125 / 125 250 / 250 275 / 275 Balance 275 / 275 -150 / -150 275 / 275 Intake: Oral 400 / 400 100 / 100 550 / 550 Output: Urine Catheter Amount 125 / 125 Void Amount 250 / 250 275 / 275 # of times incontinent of urine 0 / 0 Other: Meal Dinner Percent of Meal Consumed 75% Feeding Ability Independent Urine Appearance Clear Clear Cloudy Urine Color Dark Amy Dark Yellow Dark Amy Urine Odor Normal Strong # Voids 1 Weight 293 lb 8 oz Intake & Output: Intake & Output 04/19/18 04/20/18 04/20/18 21:59 05:59 13:59 Intake Total 400 / 400 100 / 100 550 / 550 Output Total 125 / 125 250 / 250 275 / 275 Balance 275 / 275 -150 / -150 275 / 275 Weight 293 lb 8 oz Intake: Oral 400 / 400 100 / 100 550 / 550 Output: Urine Catheter Amount 125 / 125 Void Amount 250 / 250 275 / 275 # of times incontinent of urine 0 / 0 Other: Meal Dinner Percent of Meal Consumed 75% Feeding Ability Independent Urine Appearance Clear Clear Cloudy Urine Color Dark Amy Dark Yellow Dark Amy Urine Odor Normal Strong # Voids 1 Incision: Yes healing Incision clean and dry: Yes Dressing: Yes clean Weight bearing status: full Neurological exam IM: Yes alert, Yes oriented X3, Yes neurovascular intact Extremities exam IM: Yes pedal edema, Yes Foot pink and warm, Yes neurovascular intact - Periperhal Pulses Peripheral pulses: 1+: dorsalis pedis (L), dorsalis pedis (R) - [facility] Allied health notes reviewed: OT - Labs CBC & BMP: 04/19/18 04:00 04/08/18 13:38 Labs: Orthopedic Labs 04/20/18 04/19/18 04/08/18 04:20 04:00 13:39 PT 16.0 H 15.3 H 16.1 H INR 1.3 H 1.2 H 1.3 H APTT 33 04/19/18 04/08/18 04:00 13:38 Hgb 13.9 Hct 33.4 L 41.3
[2018-04-20] MEDS: WARFARIN 5 MG TABLET PO SCH (13:35)
[2018-04-20] MEDS: MAGNESIUM HYDROXIDE 30 ML ORAL.SUSP PO PRN (21:48)
[2018-04-20] MEDS: AMITRIPTYLINE 25 MG TABLET PO SCH (21:48)
[2018-04-20] MEDS: SENNOSIDES 1 TABLET PO SCH (21:48)
[2018-04-21] MEDS: oxyCODONE/APAP 5/325MG TABLET PO PRN ×4 (00:31→12:41)
[2018-04-21] MEDS: 0.9 % SODIUM CHLORIDE 10 ML SYRINGE IV SCH ×2 (05:19→14:00)
[2018-04-21] MEDS: metFORMIN 500 MG TABLET PO SCH (07:34)
[2018-04-21] MEDS: GLIMEPIRIDE 2 MG TABLET PO SCH (07:35)
[2018-04-21] MEDS: MAGNESIUM HYDROXIDE 30 ML ORAL.SUSP PO PRN (09:05)
[2018-04-21] MEDS: LISINOPRIL 10 MG TABLET PO SCH (09:05)
[2018-04-21] MEDS: GABAPENTIN 100 MG CAPSULE PO SCH ×2 (09:05→14:00)
[2018-04-21] MEDS: DOCUSATE SODIUM 100 MG CAPSULE PO SCH (09:05)
[2018-04-21] MEDS: WARFARIN 5 MG TABLET PO SCH (13:40)
[2018-04-21] MEDS ORDERED: WARFARIN 5 MG TABLET PO ONE (14:00)
== END 2018-04-21 14:50 | disposition other institution (70) | DRG 467 ==
LOC: MEDSUR 08:30
PROVIDERS: ADMIT Orthopaedic Surgery; ATTEND Orthopaedic Surgery
CPT/HCPCS: 62322; 90686; 97161; A6213; C1713; C1776; J0131; J0690; J1100; J1170; J1580; J1885; J2001; J2250; J2370; J2405; J2795; J7120